=== PATIENT | male | born 1960 | race Caucasian/White ===

== ENCOUNTER 2018-05-17 20:18 | Emergency (ER) | payer OTHER ==
[2018-05-17 20:34] VITALS: BP 139/85
[2018-05-17] MEDS ORDERED: predniSONE 20 MG TABLET PO STA (20:43)
[2018-05-17] MEDS ORDERED: diphenhydrAMINE 25 MG CAPSULE PO STA (20:43)
--- NOTE | 2018-05-17 21:24 | ED Physician Documentation ---
PD HPI SKIN - Stated complaint Stated Complaint: R WRIST POSS INSECT BITE - Chief complaint Chief Complaint: Wound - History obtained from History obtained from: Patient - History of Present Illness Timing - onset: Yesterday Timing - details: Gradual onset, Still present Location: RUE Quality / character: Itchy Associated symptoms: No: Fever, Myalgias Contributing factors: Insect bite /sting Similar symptoms before: Has not had sx before Recently seen: Not recently seen - Additional information Additional information: Patient is a 57 year old male with no significant past medical history who is presenting to the emergency department for left sided wrist pain and redness. Patient states that it started as itching and redness and he thought he might have had a spider bite. patient denies any pain at this point. Review of Systems Ten Systems: 10 systems reviewed and negative PD PAST MEDICAL HISTORY - Past Medical History Past Medical History: No - Past Surgical History Past Surgical History: No - Present Medications Home Medications: Ambulatory Orders Medication Instructions Recorded Confirmed Cephalexin [Keflex] 500 mg PO Q6H 7 Days capsule 05/17/18 predniSONE [Prednisone] 40 mg PO DAILY 5 Days tablet 05/17/18 - Allergies Allergies/Adverse Reactions: Allergies Allergy/AdvReac Type Severity Reaction Status Date / Time No Known Drug Allergies Allergy Verified 05/17/18 20:34 - Social History Does the pt smoke?: No Smoking Status: Never smoker Does the pt drink ETOH?: No Does the pt have substance abuse?: No - Immunizations Immunizations are current?: Yes - POLST Patient has POLST: No PD ED PE NORMAL - Vitals Vital signs reviewed: Yes - General General: Alert and oriented X 3 - HEENT HEENT: Atraumatic - Cardiac Cardiac: RRR - Respiratory Respiratory: No respiratory distress - Neuro Neuro: Alert and oriented X 3 PD ED PE EXPANDED - Derm Derm: Rash - Extremities SHILPI UE/Hands Visual: 1 - rash (erythematous and indurated) Results - Vitals Vitals: Vital Signs - 24 hr 05/17/18 20:25 Heart Rate 94 Respiratory 18 Rate Blood Pressure 139/85 H O2 Saturation 96 Oxygen O2 Source Room air PD MEDICAL DECISION MAKING - ED course Complexity details: reviewed old records, reviewed results, re-evaluated patient , considered differential, d/w patient ED course: Patient was seen and examined at bedside. Patient's was treated with benadryl and prednisone. area was outlined and prescriptions were written. Patient was given detailed discharge and follow up instrucitons. patient was stable for outpatient follow up. - Sepsis Event Vital Signs: Vital Signs - 24 hr 05/17/18 20:25 Heart Rate 94 Respiratory 18 Rate Blood Pressure 139/85 H O2 Saturation 96 Oxygen O2 Source Room air Departure - Departure Disposition: 01 Home, Self Care Clinical Impression: Insect bite Condition: Good Instructions: ED Bite Insect Prescriptions: Cephalexin [Keflex] 500 mg PO Q6H 7 Days capsule predniSONE [Prednisone] 40 mg PO DAILY 5 Days tablet Comments: Your symptoms are likely secondary to insect bite or sting. you were treated with steroids and bendaryl. the area has been outlined. you can take benadryl every 6 hours as needed. you can also apply ice to the region. If the area gets painful or you notice streaking redness you should start the antibiotics. You should follow up with your doctor for routine care. you may return to the emergency department at any time for worsening symptoms.
== END 2018-05-17 22:17 | disposition home or self-care (01) ==
LOC: ED 20:18
DX: S60.861A Insect bite (nonvenomous) of right wrist, initial encounter (principal); W57.XXXA Bitten or stung by nonvenomous insect and other nonvenomous arthropods, initial encounter
CPT/HCPCS: 99283; A9270; J7512